=== PATIENT | male | born 1960 ===

== ENCOUNTER 2024-11-05 17:17 | Emergency (ER) | payer MEDICARE, OTHER, SELFPAY ==
[2024-11-05 17:37] VITALS: BP 150/90
[2024-11-05 18:13] VITALS: BMI 32.1
[2024-11-05 18:16] VITALS: BP 148/89
[2024-11-05 18:29] LABS: Hematocrit 46.1 % (39.0-52.0); Hemoglobin 16.8 g/dL (13.0-18.0); Mean Corp Hgb Conc. 36.4 g/dL (33.0-37.0); Mean Corpuscular Volume 85.2 fL (80.0-94.0); Nucleated Red Blood Cells % 0 % (-); Platelet Count 149 10^3/uL (130-400); Red Cell Dist. Width 12.4 % (11.5-14.5)
--- NOTE | 2024-11-05 18:32 | ED.GENMED ---
History of Present Illness
General
Chief Complaint: Heart Rate Problem
Time Seen by Provider: 11/05/24 18:22
History of Present Illness
History of Present Illness:
Patient is a 64-year-old male with history of hyperlipidemia presenting to the emergency department with palpitations. Patient states that he was playing pickle ball outside today. He states that while he was playing he got lightheaded felt as if
his heart was pounding. He checked his pulse and it felt like it was skipping a beat. He does state that he only had 16 ounces of water today. This about 90 degrees outside and he does state that he felt dehydrated. He states that he went and
sat in the AC and symptoms did not improve. He denies any chest pain shortness of breath nausea vomiting diaphoresis. He denies any palpitations. He states all symptoms have resolved since this occurred. No prior history of this. No personal or
family history of PE. No recent immobilization. No problems with his thyroid. Denies any drug or alcohol use. No recent illnesses.
Past History
Past History
ED Past Medical History: Hypercholesterolemia, Other (TIA) and Other (divertic)
ED Past Surgical History: Bowel resection
Social History
Tobacco: Non-smoker
Alcohol: None
Drug: None
Personal:
Living: with family
Employment: Employed
Phy Exam
Physical Exam
Physical Exam:
GENERAL: in no acute distress
HEENT: normocephalic, extraocular movements intact, dry oral mucosa
NECK: normal inspection
RESPIRATORY: no respiratory distress, clear to auscultation bilaterally
CARDIOVASCULAR: regular rate and rhythm, 2+ radial pulses
ABDOMEN/: soft, non-distended, non-tender to palpation, no rebound or guarding
EXTREMITIES: non-tender, no edema/swelling
NEUROLOGIC: awake and alert, moves all extremities
SKIN: warm
Course
Orders/Labs/Results
Orders:
Orders
11/05/24 17:18
Electrocardiogram (*1) Urgent
Reason for Study: Palpitations
EKG- Treatment ONCE
11/05/24 18:24
Basic Metabolic Panel Urgent
Complete Blood Count/With Diff Urgent
Magnesium Urgent
Thyroid profile [TSH Reflex To Free T4] Urgent
Abnormal Lab Results
11/05/24
18:24
MCH 31.1 H pg
(27.0-31.0)
Abs Immat Gran (auto) 0.1 H 10^3/uL
(0-0.05)
Absolute Neuts (auto) 8.1 H 10^3/uL
(1.4-6.5)
Neutrophils % 78.8 H %
(42.2-75.2)
Lymphocytes % 13.5 L %
(20.5-51.1)
Glucose 101 H mg/dl
(70-99)
11/05/24 18:24
11/05/24 18:24
Vital Signs
Initial and Last Documented VS:
Initial Vital Signs
Temp Pulse Resp BP Pulse Ox
97.9 F 80 18 150/90 97
11/05/24 17:37 11/05/24 17:37 11/05/24 17:37 11/05/24 17:37 11/05/24 17:37
Last Documented Vital Signs
Temp Pulse Resp BP Pulse Ox
97.9 F 65 14 135/84 99
11/05/24 17:37 11/05/24 19:15 11/05/24 19:15 11/05/24 19:00 11/05/24 19:15
MDM/Problems Addressed
Differential Diagnosis Includes:
Patient is a 64-year-old male with history of hyperlipidemia presenting to the emergency department with concerns for irregular heartbeat. On arrival patient's vital signs are notable for heart rate in the 80s. EKG per my interpretation normal
sinus rhythm. Exam does show dry oral mucosa. Differential consists of dehydration versus cardiac arrhythmia versus PACs. Will check blood work to evaluate magnesium and thyroid as well as basic labs. Will give patient p.o. fluids.
*Pulse Oximetry
SaO2: 99
Oxygen Mode of Delivery: Room air
Patient hypoxic: no (97)
*Critical Care Note
Total Time (30-74mins, 75-104mins- exclusive of procedures): Not Applicable
Update Note
Update Note:
Blood work reassuring. Telemetry reviewed with no events. Patient continues to feel asymptomatic. Will discharge at this time with outpatient follow-up
ED Attending Note
-
Portions of this chart may have been created with voice recognition software.� Occasional wrong word or��sound alike� substitutions may have occurred due to the inherent limitations of voice recognition software.
Discharge Plan
Departure
Patient Disposition: Home (Routine Discharge)
Date of Disposition: 11/05/24
Time of Disposition: 19:37
Patient with high blood pressure during this ER visit?: No
Discharge Problem:
Palpitations
Instructions: Palpitations (DC)
Prescriptions:
No Action
minocycline 100 MG capsule
100 mg PO Q48H
aspirin 81 MG tablet,delayed release (DR/EC)
81 mg PO DAILY
ibuprofen [Advil] 200 MG tablet
600 mg PO DAILYPRN PRN (Reason: mild pain)
rosuvastatin 20 MG tablet
20 mg PO DAILY
levocetirizine [Xyzal] 5 MG tablet
5 mg PO DAILY
Magnesium 250 MG Tablet
250 mg PO DAILY
pantoprazole 40 MG tablet,delayed release (DR/EC)
40 mg PO DAILY Qty: 14 0RF
Referrals:
NONE,* [Family Provider, Internal Medicine]
Activity Restrictions/Additional Instructions:
You were evaluated in the Emergency Department today for feeling like your heart was skipping a beat. Your evaluation has shown no signs of medical conditions requiring emergent intervention at this time, however we recommend that you follow up with
your primary care physician or your reverberatory skimmer as soon as possible for further testing as an outpatient. Please increase your water intake as discussed.
Please schedule an appointment for follow up with your primary care physician as soon as possible.
Return to the Emergency Department if you experience worsening or uncontrolled chest pain, shortness of breath, light headedness, feeling faint, nausea, vomiting, or any other concerning symptoms.
Thank you for choosing us for your care.
Interventions
Interventions:
*Risk Screen - Suicide Last Done: 11/05/24 17:37
*General Assessment Last Done: 11/05/24 17:37
*Neglect/Abuse Screening Last Done: 11/05/24 17:37
*ED- Fall Risk Assessment Last Done: 11/05/24 18:13
*ED COVID-19 Vaccine History Last Done: 11/05/24 17:37
ED- Cardiac Assessment Last Done: 11/05/24 18:13
ED- Pulmonary Assessment Last Done: 11/05/24 18:13
Discharge Date and Time
Print Language: MALAWIAN
[2024-11-05 18:49] LABS: Blood Urea Nitrogen 17 mg/dl (9-20); Calcium 9.5 mg/dl (8.4-10.2); Carbon Dioxide 24 mmol/L (22-30); Chloride 107 mmol/L (98-107); Estimated Creatinine Clearance 98 ml/min; Glucose 101 mg/dl (70-99); Magnesium 2.0 mg/dl (1.6-2.3); Potassium 4.3 mmol/L (3.5-5.1); Sodium 139 mmol/L (135-145); eGFR > 60.00
[2024-11-05 19:00] VITALS: BP 135/84
== END 2024-11-05 20:14 | disposition home or self-care (01) ==
LOC: EMR 17:17
PROVIDERS: EMERGENCY PHYSICIAN Student in an Organized Health Care Education/Training Program; FAMILY PHYSICIAN Family Medicine
DX: R00.2 Palpitations (principal); E78.00 Pure hypercholesterolemia, unspecified; Z86.73 Personal history of transient ischemic attack (TIA), and cerebral infarction without residual deficits
CPT/HCPCS: 99284; 80048; 83735; 84443; 85025; 93005